=== PATIENT | female | born 1960 | race Caucasian/White ===

== ENCOUNTER 2023-07-23 14:26 | Emergency (ER) | payer OTHER ==
[2023-07-23 14:52] VITALS: BP 131/65; PULSE 78; RESP 18; TEMP 98.4; BMI 18.1
== END 2023-07-23 16:37 | disposition home or self-care (01) ==
LOC: JERFT 14:26
DX: S80.911A Unspecified superficial injury of right knee, initial encounter (principal); M25.561 Pain in right knee; W01.0XXA Fall on same level from slipping, tripping and stumbling without subsequent striking against object, initial encounter
CPT/HCPCS: 99282-25